=== PATIENT | male | born 1995 | race African-American/Black ===

== ENCOUNTER 2017-01-28 11:00 | Emergency (ER) | payer BC, OTHER ==
--- NOTE | 2017-01-28 13:16 | RAD ---
RIGHT SHOULDER 3 VIEWS: Date; 01/28/17 HISTORY: Injury. COMPARISON: None. FINDINGS: Glenohumeral joint space preserved. No fracture or dislocation. Visualized right ribs are unremarkab le. IMPRESSION: No fracture or dislocation. POS: [facility]
== END 2017-01-28 11:55 | disposition home or self-care (01) ==
LOC: MADERS 11:00
DX: S43.51XA Sprain of right acromioclavicular joint, initial encounter (principal); X58.XXXA Exposure to other specified factors, initial encounter; Y93.61 Activity, american tackle football

== ENCOUNTER 2017-10-02 14:00 | Emergency (ER) | payer BC ==
--- NOTE | 2017-10-02 15:42 | RAD ---
LEFT FEMUR TWO VIEWS: History: Football injury to left thigh two weeks ago. Swelling. Comparison: None. FINDINGS: No fracture. No cortical irregularity. No periosteal reaction. Hardware at the level of the proximal tibial is noted. IMPRESSION: 1. No fracture. No cortical irregularity or periosteal reaction. 2. Post-surgical hardware at the proximal tibial. POS: [facility]
== END 2017-10-02 15:25 | disposition home or self-care (01) ==
LOC: MADERS 14:00
DX: S70.12XA Contusion of left thigh, initial encounter (principal); W50.0XXA Accidental hit or strike by another person, initial encounter; Y93.61 Activity, american tackle football

== ENCOUNTER 2017-10-15 14:03 | Emergency (ER) | payer BC, SELFPAY | END 2017-10-15 14:59 | disposition home or self-care (01) | LOC: MADERS 14:03 | DX: S70.12XA Contusion of left thigh, initial encounter (principal); W22.8XXA Striking against or struck by other objects, initial encounter; Y93.61 Activity, american tackle football | CPT/HCPCS: 99282 ==

== ENCOUNTER 2019-06-27 07:37 | Emergency (ER) | payer SELFPAY ==
--- NOTE | 2019-06-27 08:16 | RAD ---
XR Ankle Lt 3 View STANDARD HISTORY: Injury, left ankle pain FINDINGS: No dislocation is identified. The ankle mortise is maintained. There is soft tissue swelling predomin antly in the lateral aspect of the left ankle. A tiny bony density inferior to the medial malleolus may represent an age indeterminate fracture.
== END 2019-06-27 08:45 | disposition home or self-care (01) ==
LOC: MADERS 07:37
DX: S93.492A Sprain of other ligament of left ankle, initial encounter (principal); X50.9XXA Other and unspecified overexertion or strenuous movements or postures, initial encounter

== ENCOUNTER 2021-06-02 09:24 | Emergency (ER) | payer BC | END 2021-06-02 10:08 | disposition home or self-care (01) | LOC: MADERS 09:24 | DX: R22.0 Localized swelling, mass and lump, head (principal) | CPT/HCPCS: 99283 ==

== ENCOUNTER 2025-09-11 16:22 | Emergency (ER) | payer BC, SELFPAY ==
[2025-09-11] MEDS ORDERED: Tetracaine 0.5% PF 4 ML BOT ONE (16:33)
[2025-09-11] MEDS ORDERED: Fluorescein Opthalmic Strip ONE (16:33)
== END 2025-09-11 16:55 | disposition home or self-care (01) ==
LOC: MADERS 16:22
DX: H57.11 Ocular pain, right eye (principal)
CPT/HCPCS: 99283